=== PATIENT | female | born 1965 | race Caucasian/White ===

== ENCOUNTER → 2017-01-22 | Outpatient (CLI) | payer OTHER ==
[~2017-01-22] MED LIST: LIDOCAINE 1%, 20ML ONE; LIDOCAINE 1%-EPI 1:100K, 50ML ONE
== END | disposition home or self-care (01) ==
LOC: CFH 07:57
PROVIDERS: ATTEND Nurse Practitioner
DX: R92.1 Mammographic calcification found on diagnostic imaging of breast (principal)
CPT/HCPCS: 19081; 88305; G0206; J3490

== ENCOUNTER → 2017-02-14 | Outpatient (CLI) | payer OTHER ==
[~2017-02-14] MED LIST changes: -LIDOCAINE 1%-EPI 1:100K, 50ML ONE; +MULT-124 PO
== END | disposition home or self-care (01) ==
LOC: RAD 14:24
PROVIDERS: ATTEND Surgery
DX: D05.11 Intraductal carcinoma in situ of right breast (principal)
CPT/HCPCS: 38792; A9541; J3490; C9898

== ENCOUNTER 2017-02-15 15:26 | Observation (INO) | payer OTHER ==
[~2017-02-15] VITALS: Ht 172.7 cm; Wt 81.6 kg
[2017-02-15 06:25] VITALS: BP 121/79
[2017-02-15 06:38] LABS: HCG UR LOT HCG7030192
[2017-02-15 06:47] LABS: HCG UR OBC PASS
[~2017-02-15 15:26] MED LIST changes: +BACITRACIN 50,000 UNIT ONE; +BUPIVACAINE/PF 0.5% ONE; +CEFAZOLIN 1,000 MG ONE; +DEXAMETHASONE 4 MG/ML, 1ML ONE; +EPINEPHRINE 1 MG/ML, 1ML ONE; +FENTANYL PF 250 MCG/5ML ONE; +GENTAMICIN 80 MG/2 ML ONE; +ISOSULFAN BLUE 10 MG/ML, 5ML IV ONE; +KETAMINE 10 MG/ML, 20ML ONE; -LIDOCAINE 1%, 20ML ONE; +LIDOCAINE 1%, 2ML ONE; +LIDOCAINE GEL 2%, 5ML ONE; +LIDOCAINE-MPF 2% ,5ML ONE; +MIDAZOLAM 1 MG/ML, 2ML ONE; +ONDANSETRON 2MG/ML, 2ML ONE; +PROPOFOL 10 MG/ML, 20ML ONE; +SUCCINYLCHOLINE 20 MG/ML, 10ML ONE
[2017-02-15] MEDS ORDERED: ISOSULFAN BLUE 10 MG/ML, 5ML IV ONE (16:54)
[2017-02-15] MEDS ORDERED: BUPIVACAINE/PF 0.5% ONE (16:54)
[2017-02-15] MEDS ORDERED: CEFAZOLIN 1,000 MG ONE (16:54)
[2017-02-15] MEDS ORDERED: GENTAMICIN 80 MG/2 ML ONE (16:54)
[2017-02-15] MEDS ORDERED: BACITRACIN 50,000 UNIT ONE (16:55)
[2017-02-15] MEDS ORDERED: EPINEPHRINE 1 MG/ML, 1ML ONE (16:55)
[2017-02-15] MEDS ORDERED: MIDAZOLAM 1 MG/ML, 2ML ONE (16:59)
[2017-02-15] MEDS ORDERED: KETAMINE 10 MG/ML, 20ML ONE (16:59)
[2017-02-15] MEDS ORDERED: LIDOCAINE 1%, 20ML ONE (17:00)
[2017-02-15] MEDS ORDERED: FENTANYL PF 250 MCG/5ML ONE (17:00)
[2017-02-15] MEDS ORDERED: EPHEDRINE 50 MG/ML, 1ML ONE (17:48)
[2017-02-15] MEDS ORDERED: FENTANYL PF 100 MCG/2ML IV PRN (19:00)
[2017-02-15] MEDS ORDERED: DIAZEPAM 5 MG/ML, 2ML IVPush PRN (19:00)
[2017-02-15] MEDS ORDERED: ALBUTEROL/IPRATROPIUM 2.5MG/0.5MG, 3 ML NPPB PRN (19:00)
[2017-02-15] MEDS ORDERED: ACETAMINOPHEN 325 MG TABLET PO PRN (19:00)
[2017-02-15] MEDS ORDERED: LORazepam 2 MG/ML, 1ML IVPush PRN (19:00)
[2017-02-15] MEDS ORDERED: LABETALOL 5MG/ML, 20ML IV PRN (19:00)
[2017-02-15] MEDS ORDERED: HYDROmorphone 1 MG/ML, 1ML IV PRN (19:00)
[2017-02-15] MEDS ORDERED: ONDANSETRON 2MG/ML, 2ML IVPush PRN (19:00)
[2017-02-15] MEDS ORDERED: PROMETHAZINE 25 MG/ML, 1ML IV PRN (19:00)
[2017-02-15] MEDS ORDERED: MIDAZOLAM 1 MG/ML, 2ML IV PRN (19:00)
[2017-02-15] MEDS ORDERED: MEPERIDINE/PF 25MG/0.5ML IVPush PRN (19:00)
[2017-02-15] MEDS ORDERED: OXYcodone 5 MG/5 ML ORAL.SOL UDC PO PRN (19:00)
[2017-02-15] MEDS ORDERED: hydrALAzine 20 MG/ML, 1ML IV PRN ×2 (19:00→23:00)
[2017-02-15] MEDS ORDERED: HYDROmorphone 2 MG/ML, 1ML ONE (20:29)
[2017-02-15] MEDS ORDERED: ACETAMINOPHEN 650 MG/20.3 ML UDC ONE (21:29)
[2017-02-15] MEDS ORDERED: OXYcodone 5 MG/5 ML ORAL.SOL UDC ONE (21:29)
[2017-02-15] MEDS ORDERED: DIPHENHYDRAMINE 50 MG/ML, 1ML IV PRN (23:00)
[2017-02-15] MEDS ORDERED: morphine SULFATE 10 MG/ML, 1ML IV PRN (23:00)
[2017-02-15] MEDS ORDERED: HYDROmorphone 2 MG/ML, 1ML IV PRN (23:00)
[2017-02-15] MEDS ORDERED: DIPHENHYDRAMINE 25 MG CAPSULE PO PRN (23:00)
[2017-02-15] MEDS ORDERED: ENALAPRILAT 1.25 MG/ML, 2ML IV PRN (23:00)
[2017-02-15] MEDS: POTASSIUM CHLORIDE 20 MEQ in D5%-0.45% NACL 1,000 ML IV SCH (23:40)
[2017-02-16] MEDS: ONDANSETRON 2MG/ML, 2ML IV PRN ×2 (01:58→08:16)
[2017-02-16] MEDS: CEFAZOLIN PMX 2GM/50ML 50 ML IVPB SCH ×2 (01:59→10:37)
[2017-02-16] MEDS: OXYcodone/APAP 5/325MG TABLET PO PRN ×3 (02:37→11:06)
[2017-02-16 03:51] VITALS: BP 108/71
[2017-02-16] MEDS: POTASSIUM CHLORIDE 20 MEQ in D5%-0.45% NACL 1,000 ML IV SCH (07:45)
[2017-02-16 08:11] VITALS: BP 106/66
[2017-02-16] MEDS ORDERED: SODIUM CHLORIDE FLUSH 10ML SYR IVF SCH (09:00)
[2017-02-16 11:52] VITALS: BP 133/85
[2017-02-16] MEDS ORDERED: ENOXAPARIN 40 MG/0.4 ML SQ SCH (17:00)
== END 2017-02-16 12:30 | disposition home or self-care (01) ==
LOC: OUT 15:26 → 4NOR 15:27 → OUT 20:49 → INTOOBSV 22:50 → 4NOR 22:50 → DCLOUNGE 02-16 12:18
PROVIDERS: ADMIT Surgery; ATTEND Surgery
DX: C50.911 Malignant neoplasm of unspecified site of right female breast (principal)
CPT/HCPCS: 19357; 81025; 88307; 88333; 93005; 96365; 96375; 96376; C1729; C1762; C1789; G0378; J0171; J0330; J0690; J1100; J1170; J1580; J2250; J2405; J2704; J3010; J3480; J3490

== ENCOUNTER → 2018-02-06 | Outpatient (CLI) | payer OTHER ==
[~2018-02-06] MED LIST changes: -BACITRACIN 50,000 UNIT ONE; -BUPIVACAINE/PF 0.5% ONE; -CEFAZOLIN 1,000 MG ONE; -DEXAMETHASONE 4 MG/ML, 1ML ONE; -EPINEPHRINE 1 MG/ML, 1ML ONE; -FENTANYL PF 250 MCG/5ML ONE; -GENTAMICIN 80 MG/2 ML ONE; -ISOSULFAN BLUE 10 MG/ML, 5ML IV ONE; -KETAMINE 10 MG/ML, 20ML ONE; -LIDOCAINE 1%, 2ML ONE; -LIDOCAINE GEL 2%, 5ML ONE; -LIDOCAINE-MPF 2% ,5ML ONE; -MIDAZOLAM 1 MG/ML, 2ML ONE; -ONDANSETRON 2MG/ML, 2ML ONE; -PROPOFOL 10 MG/ML, 20ML ONE; -SUCCINYLCHOLINE 20 MG/ML, 10ML ONE
== END | disposition home or self-care (01) ==
LOC: CFH 11:52
PROVIDERS: ATTEND Nurse Practitioner
DX: N63.11 Unspecified lump in the right breast, upper outer quadrant (principal); Z85.3 Personal history of malignant neoplasm of breast
CPT/HCPCS: 77065